=== PATIENT | female | born 1990 | race Caucasian/White ===

== ENCOUNTER 2023-02-27 13:25 | Emergency (ER) | payer OTHER ==
[~2023-02-27] VITALS: Ht 167.6 cm; Wt 79.5 kg
[2023-02-27 13:38] VITALS: BP 94/67; PULSE 91; RESP 18; TEMP 98.4; O2SAT 96
== END 2023-02-27 14:42 | disposition home or self-care (01) ==
LOC: ER 13:25
DX: S63.612A Unspecified sprain of right middle finger, initial encounter (principal); W23.1XXA Caught, crushed, jammed, or pinched between stationary objects, initial encounter; Y93.89 Activity, other specified; Y92.89 Other specified places as the place of occurrence of the external cause; Y99.8 Other external cause status
CPT/HCPCS: 73140; 99283